=== PATIENT | female | born 1990 | race Caucasian/White ===

== ENCOUNTER 2016-05-01 20:49 | Emergency (ER) | payer OTHER ==
[~2016-05-01] VITALS: Ht 175.2 cm; Wt 68.0 kg
[~2016-05-01 20:49] MED LIST: ALBUTEROL0.09 MG/Ac INH; ANAPROX DS550 MG PO; BACTRIM DS 8001 TA1 PO; BIAXIN500 MG PO; CIPRO500 MG PO; DIFLUCAN150 MG PO; FLEXERIL5 MG PO; KEFLEX500 MG PO; MEDROL DOSEPAK4 MG PO; MOTRIN800 MG PO; NAPROSYN500 MG PO; NKHM; OMNICEF300 MG PO; PREDNICOT20 MG PO; PROVENTIL0.09 MG/AC IH; ROBAXIN750 MG PO; ULTRAM50 MG PO; VIBRAMYCIN100 MG PO; VIVITROL380 MG IM; ZYRTEC10 MG PO
[2016-05-01 21:52] LABS: BILIRUBIN NEGATIVE (NEGATIVE); BLOOD NEGATIVE (NEGATIVE); CLARITY SL CLOUDY (CLEAR); COLOR YELLOW (YELLOW); GLUCOSE NEGATIVE (NEGATIVE); KETONE NEGATIVE (NEGATIVE); LEUKO ESTERASE NEGATIVE (NEGATIVE); NITRITE NEGATIVE (NEGATIVE); PROTEIN NEGATIVE (NEGATIVE); UROBILINOGEN 0.2 E.U./dl (0.2-1.0)
[2016-05-01 21:58] LABS: BACTERIA 1+; RBC 0-2 rbc/hpf (0-2); URINE REFLEX COMMENT NO (NO); WBC 0-2 wbc/hpf (0-5)
[2016-05-01 22:05] LABS: URINE AMPHETAMINES < 1000 (1000ng/ml); URINE BARBITURATES < 200 (200ng/ml)
[2016-05-01 22:09] LABS: URINE COCAINE > 300 (300ng/ml)
[2016-05-01 22:16] LABS: BUN 15 mg/dl (7-24); CARBON DIOXIDE 26 mmol/L (21-32); CHLORIDE 106 mmol/L (98-107); EST GLOM FILT AFRICAN AMERICAN > 60 ml/min; GLUCOSE 94 mg/dL (65-99); POTASSIUM 4.9 mmol/L (3.5-5.1); SODIUM 140 mmol/L (136-145)
== END 2016-05-02 01:18 | disposition home or self-care (01) ==
LOC: ED 20:49
PROVIDERS: Emergency Medicine
DX: T40.1X1A Poisoning by heroin, accidental (unintentional), initial encounter (principal); F17.200 Nicotine dependence, unspecified, uncomplicated; F41.9 Anxiety disorder, unspecified; Y92.9 Unspecified place or not applicable

== ENCOUNTER 2016-08-27 12:18 | Emergency (ER) | payer OTHER ==
[~2016-08-27] VITALS: Ht 172.7 cm; Wt 63.5 kg
[2016-08-27 13:09] LABS: BASO % 0.3 % (0.0-1.0); EOS # 0.3 10*3/uL (0.0-0.4); EOS % 2.2 % (1.0-4.0); HEMATOCRIT 42.7 % (37.0-47.0); HEMOGLOBIN 14.1 g/dl (12.0-16.0); LYMPH # 2.5 10*3/uL (1.3-4.4); LYMPH % 22.3 % (27.0-41.0); MEAN CELL VOLUME 90.7 fl (81.0-99.0); MEAN CORPUSCULAR HGB 29.9 pg (27.0-31.0); MEAN PLATELET VOLUME 10.2 fl (9.6-12.3); MONO # 0.9 10*3/uL (0.1-1.0); MONO % 7.6 % (3.0-9.0); NEUT # 7.6 10*3/uL (2.3-7.9); NEUT % 67.2 % (47.0-73.0); PLATELET COUNT AUTOMATED 202 10*3/uL (130-400); RED BLOOD COUNT 4.71 10*6/uL (4.10-5.10); RED CELL DISTRI WIDTH 13.4 % (0-14.5); WHITE BLOOD COUNT 11.4 10*3/uL (4.8-10.8)
[2016-08-27 13:24] LABS: ALBUMIN 3.4 gm/dl (3.1-4.5); ALKALINE PHOSPHATASE 112 U/L (45-117); BILIRUBIN, TOTAL 0.3 mg/dl (0.2-1.0); BUN 6 mg/dl (7-24); CARBON DIOXIDE 27 mmol/L (21-32); CHLORIDE 104 mmol/L (98-107); EST GLOM FILT AFRICAN AMERICAN > 60 ml/min; GLUCOSE 148 mg/dL (65-99); POTASSIUM 3.8 mmol/L (3.5-5.1); SGOT/AST 43 IU/L (3-35); SGPT/ALT 82 U/L (12-78); SODIUM 142 mmol/L (136-145); TOTAL PROTEIN 7.8 gm/dL (6.4-8.2)
[2016-08-27] MEDS ORDERED: BACTRIM DS 8001 TA1 PO (15:08)
[2016-08-27] MEDS ORDERED: CEPHALEXIN500 M1 PO (15:08)
[2016-08-27] MEDS ORDERED: Motrin,Rufen800 MG PO (15:08)
== END 2016-08-27 16:15 | disposition home or self-care (01) ==
LOC: ED 12:18
PROVIDERS: Physician Assistant
DX: L02.414 Cutaneous abscess of left upper limb (principal); L02.512 Cutaneous abscess of left hand; F19.90 Other psychoactive substance use, unspecified, uncomplicated; F17.200 Nicotine dependence, unspecified, uncomplicated

== ENCOUNTER 2018-02-14 16:02 | Emergency (ER) | payer OTHER ==
[~2018-02-14] VITALS: Ht 175.2 cm; Wt 77.1 kg
[~2018-02-14 16:02] MED LIST changes: +CEPHALEXIN500 M1 PO; +Motrin,Rufen800 MG PO
[2018-02-14 17:59] LABS: ALBUMIN 3.5 gm/dl (3.1-4.5); ALKALINE PHOSPHATASE 86 U/L (45-117); BUN 8 mg/dl (7-24); CHLORIDE 108 mmol/L (98-107); CREATININE 0.74 mg/dL (0.55-1.02); POTASSIUM 3.5 mmol/L (3.5-5.1); SGOT/AST 16 IU/L (3-35); SGPT/ALT 27 U/L (12-78); SODIUM 139 mmol/L (136-145); TOTAL PROTEIN 7.8 gm/dL (6.4-8.2)
[2018-02-14 18:17] LABS: BASO # 0.1 10*3/uL (0.0-0.1); BASO % 0.3 % (0.0-1.0); EOS # 0.3 10*3/uL (0.0-0.4); EOS % 1.6 % (1.0-4.0); HEMATOCRIT 40.4 % (37.0-47.0); HEMOGLOBIN 13.5 g/dl (12.0-16.0); LYMPH # 3.2 10*3/uL (1.3-4.4); LYMPH % 19.5 % (27.0-41.0); MEAN CELL VOLUME 87.6 fl (81.0-99.0); MEAN CORPUSCULAR HGB 29.3 pg (27.0-31.0); MEAN CORPUSCULAR HGB CONC 33.4 g/dl (33.0-37.0); MONO # 1.3 10*3/uL (0.1-1.0); MONO % 7.6 % (3.0-9.0); NEUT # 11.6 10*3/uL (2.3-7.9); NEUT % 70.6 % (47.0-73.0); PLATELET COUNT AUTOMATED 244 10*3/uL (130-400); RED BLOOD COUNT 4.61 10*6/uL (4.10-5.10); RED CELL DISTRI WIDTH 12.9 % (0-14.5); WHITE BLOOD COUNT 16.4 10*3/uL (4.8-10.8)
[2018-02-14] MEDS ORDERED: CEPHALEXIN500 M1 PO (20:36)
[2018-02-14] MEDS ORDERED: SEPTDS PO (20:36)
== END 2018-02-14 20:39 | disposition left against medical advice (07) ==
LOC: ED 16:02
PROVIDERS: Physician Assistant
DX: L02.414 Cutaneous abscess of left upper limb (principal); L02.413 Cutaneous abscess of right upper limb; L98.498 Non-pressure chronic ulcer of skin of other sites with other specified severity; Z79.2 Long term (current) use of antibiotics; Z79.899 Other long term (current) drug therapy

== ENCOUNTER 2019-01-01 15:10 | Emergency (ER) | payer SELFPAY ==
[~2019-01-01] VITALS: Ht 175.2 cm; Wt 77.1 kg
--- NOTE | ~2019-01-01 | EKG ---
[place], [place] ELECTROCARDIOGRAM REPORT NAME: DAREN SINGH UNIT #: [id number] ROOM: DOCTOR: EPIPHANY DRAFT REPORT BIRTHDATE: [birth year] [facility] Test Date: 2019-01-01 Test Time: 16:26:36 Pat Name: DAREN SINGH Department: ER Room: 8 Gender: F [employer] Supervisor: BYRON : 1990 Requested By: YESENIA RAMOS PA-C Order Number: [id number] Reading MD: Aurora Estrada Measurements Intervals [place] Rate: 105 P: 65 ME: 127 QRS: 68 QRSD: 71 T: 49 QT: 314 QTc: 416 Interpretive Statements Sinus tachycardia Baseline wander in lead(s) V1 Electronically Signed On 01-02-2019 11:19:34 PST by Aurora Estrada CM:EKGRPT:ELECTROCARDIOGRAM REPORT [id number] YESENIA RAMOS PA-C EPIPHANY DRAFT REPORT YESENIA RAMOS PA-C
[~2019-01-01 15:10] MED LIST changes: +SEPTDS PO
[2019-01-01 16:32] LABS: BASO % 0.2 % (0.0-1.0); EOS % 0.2 % (1.0-4.0); HEMATOCRIT 38.2 % (37.0-47.0); HEMOGLOBIN 12.7 g/dl (12.0-16.0); LYMPH # 0.6 10*3/uL (1.3-4.4); LYMPH % 7.3 % (27.0-41.0); MEAN CELL VOLUME 91.8 fl (81.0-99.0); MEAN CORPUSCULAR HGB 30.5 pg (27.0-31.0); MEAN CORPUSCULAR HGB CONC 33.2 g/dl (33.0-37.0); MEAN PLATELET VOLUME 10.2 fl (9.6-12.3); MONO # 0.6 10*3/uL (0.1-1.0); MONO % 6.7 % (3.0-9.0); NEUT # 7.1 10*3/uL (2.3-7.9); NEUT % 85.2 % (47.0-73.0); PLATELET COUNT AUTOMATED 116 10*3/uL (130-400); RED BLOOD COUNT 4.16 10*6/uL (4.10-5.10); RED CELL DISTRI WIDTH 12.5 % (0-14.5); WHITE BLOOD COUNT 8.3 10*3/uL (4.8-10.8)
[2019-01-01 16:57] LABS: ALBUMIN 3.2 gm/dl (3.1-4.5); ALKALINE PHOSPHATASE 94 U/L (45-117); BUN 9 mg/dl (7-24); CHLORIDE 104 mmol/L (98-107); CREATININE 0.68 mg/dL (0.55-1.02); LIPASE 48 U/L (73-393); SGOT/AST 38 IU/L (3-35); SGPT/ALT 46 U/L (12-78); SODIUM 133 mmol/L (136-145); TOTAL PROTEIN 7.4 gm/dL (6.4-8.2)
[2019-01-01 16:59] LABS: ACETAMINOPHEN (TYLENOL) < 5.0 ug/ml (10-30); ACT PARTIAL THROMBO TIME 31.4 SECONDS (20.0-32.1); BETA-HCG, QUANT < 1.0 mIU/mL (1-3); ETHYL ALCOHOL < 3.0 mg/dl (<3); TROPONIN I < 0.015 ng/ml (<0.045)
[2019-01-01] MEDS ORDERED: SEPTDS PO (17:49)
[2019-01-01] MEDS ORDERED: CEFADROXIL500 M1 PO (17:49)
[2019-01-01 17:51] LABS: BILIRUBIN NEGATIVE (NEGATIVE); BLOOD TRACE-LYSED (NEGATIVE); CLARITY CLEAR (CLEAR); COLOR YELLOW (YELLOW); GLUCOSE NEGATIVE (NEGATIVE); KETONE NEGATIVE (NEGATIVE); LEUKO ESTERASE TRACE (NEGATIVE); NITRITE NEGATIVE (NEGATIVE); PH 6.5 (5.0-9.0); SPECIFIC GRAVITY <= 1.005 (1.005-1.030); UROBILINOGEN 0.2 E.U./dl (0.2-1.0)
[2019-01-01 17:56] LABS: URINE AMPHETAMINES > 1000 (1000ng/ml); URINE BARBITURATES < 200 (200ng/ml); URINE BENZODIAZEPINES < 200 (200ng/ml); URINE CANNABINOIDS (THC) < 50 (50ng/ml); URINE COCAINE > 300 (300ng/ml); URINE METHADONE < 300 (300ng/ml); URINE OPIATES < 300 (300ng/ml)
[2019-01-01 18:01] LABS: URINE PHENCYCLIDINE < 25 (25ng/ml)
[2019-01-01 18:13] LABS: EPITHELIAL CELLS TNTC
[2019-01-01 18:14] LABS: BACTERIA 2+; RBC 0-2 rbc/hpf (0-2); WBC 0-2 wbc/hpf (0-5)
[2019-01-04 21:09] LABS: GONOCOCCUS BY NAA Negative (Negative)
== END 2019-01-01 17:56 | disposition left against medical advice (07) ==
LOC: ED 15:10
PROVIDERS: Physician Assistant
DX: L02.415 Cutaneous abscess of right lower limb (principal); R07.9 Chest pain, unspecified; R11.2 Nausea with vomiting, unspecified; R79.1 Abnormal coagulation profile; N89.8 Other specified noninflammatory disorders of vagina; F11.90 Opioid use, unspecified, uncomplicated; Z79.2 Long term (current) use of antibiotics; Z79.899 Other long term (current) drug therapy; Z86.14 Personal history of Methicillin resistant Staphylococcus aureus infection

== ENCOUNTER 2019-01-08 11:05 | Emergency (ER) | payer SELFPAY ==
[~2019-01-08] VITALS: Ht 175.2 cm; Wt 77.1 kg
--- NOTE | ~2019-01-08 | EKG ---
[place], [place] ELECTROCARDIOGRAM REPORT NAME: DAREN SINGH UNIT #: [id number] ROOM: DOCTOR: EPIPHANY DRAFT REPORT BIRTHDATE: [birth year] [facility] Test Date: 2019-01-08 Test Time: 11:50:08 Pat Name: DAREN SINGH Department: Room: Gender: F [employer] Specialist: : 1990 Requested By: DAVID TEJADA Order Number: [id number] Reading MD: Bart Dasilva MD Measurements Intervals [place] Rate: 92 P: 85 NM: 129 QRS: 65 QRSD: 70 T: 56 QT: 339 QTc: 420 Interpretive Statements Sinus rhythm Borderline T wave abnormalities Compared to ECG 01/01/2019 16:26:36 T-wave abnormality now present Sinus tachycardia no longer present Electronically Signed On 01-09-2019 12:25:03 PST by Bart Dasilva MD CM:EKGRPT:ELECTROCARDIOGRAM REPORT [id number] DAVID FRASER DRAFT REPORT DAVID TEJADA M.D.
[~2019-01-08 11:05] MED LIST changes: +CEFADROXIL500 M1 PO
[2019-01-08 11:50] LABS: HEMATOCRIT 41.2 % (37.0-47.0); HEMOGLOBIN 13.3 g/dl (12.0-16.0); MEAN CELL VOLUME 92.6 fl (81.0-99.0); MEAN CORPUSCULAR HGB 29.9 pg (27.0-31.0); MEAN CORPUSCULAR HGB CONC 32.3 g/dl (33.0-37.0); MEAN PLATELET VOLUME 9.5 fl (9.6-12.3); PLATELET COUNT AUTOMATED 253 10*3/uL (130-400); RED BLOOD COUNT 4.45 10*6/uL (4.10-5.10); RED CELL DISTRI WIDTH 12.9 % (0-14.5); WHITE BLOOD COUNT 9.6 10*3/uL (4.8-10.8)
[2019-01-08 12:03] LABS: URINE AMPHETAMINES < 1000 (1000ng/ml); URINE BARBITURATES < 200 (200ng/ml); URINE BENZODIAZEPINES < 200 (200ng/ml); URINE CANNABINOIDS (THC) < 50 (50ng/ml); URINE COCAINE > 300 (300ng/ml); URINE METHADONE < 300 (300ng/ml); URINE OPIATES > 300 (300ng/ml); URINE PHENCYCLIDINE < 25 (25ng/ml)
[2019-01-08 12:04] LABS: ALBUMIN 3.2 gm/dl (3.1-4.5); ALKALINE PHOSPHATASE 98 U/L (45-117); BUN 11 mg/dl (7-24); CHLORIDE 108 mmol/L (98-107); CREATININE 0.87 mg/dL (0.55-1.02); POTASSIUM 3.8 mmol/L (3.5-5.1); SGOT/AST 22 IU/L (3-35); SGPT/ALT 24 U/L (12-78); SODIUM 140 mmol/L (136-145); TOTAL PROTEIN 8.2 gm/dL (6.4-8.2)
[2019-01-08 12:06] LABS: BILIRUBIN NEGATIVE (NEGATIVE); BLOOD NEGATIVE (NEGATIVE); CLARITY CLOUDY (CLEAR); COLOR YELLOW (YELLOW); GLUCOSE NEGATIVE (NEGATIVE); KETONE NEGATIVE (NEGATIVE); LEUKO ESTERASE 1+ (NEGATIVE); NITRITE NEGATIVE (NEGATIVE); UROBILINOGEN 0.2 E.U./dl (0.2-1.0)
[2019-01-08 12:16] LABS: ACT PARTIAL THROMBO TIME 26.6 SECONDS (20.0-32.1); INTERNATIONAL NORM RATIO 0.9 (2.0-3.5)
[2019-01-08 12:31] LABS: ATYPICAL LYMPHS 1 % (0-0); PLATELET SUFFICIENCY NORMAL (NORMAL); TOTAL CELLS COUNTED 100 #CELLS
[2019-01-08 12:36] LABS: BACTERIA 3+; EPITHELIAL CELLS 45-50; WBC 21-30 wbc/hpf (0-5)
== END 2019-01-08 13:10 | disposition left against medical advice (07) ==
LOC: ED 11:05
PROVIDERS: Emergency Medicine
DX: A41.9 Sepsis, unspecified organism (principal); M54.5 Low back pain; R05 Cough; R06.02 Shortness of breath; J45.909 Unspecified asthma, uncomplicated; F11.10 Opioid abuse, uncomplicated; F14.10 Cocaine abuse, uncomplicated; F17.200 Nicotine dependence, unspecified, uncomplicated; Z79.2 Long term (current) use of antibiotics; Z79.899 Other long term (current) drug therapy

== ENCOUNTER 2019-12-02 22:41 | Emergency (ER) | payer OTHER ==
[~2019-12-02] VITALS: Ht 175.2 cm; Wt 77.1 kg
[2019-12-03 00:19] LABS: BILIRUBIN Negative (Negative); BLOOD Trace-Lysed (Negative); COLOR Yellow (Yellow); GLUCOSE Negative (Negative); KETONE Negative (Negative); LEUKO ESTERASE Trace (Negative); NITRITE Negative (Negative); PH 6.5 (4.5-8.0); SPECIFIC GRAVITY <= 1.005 (1.001-1.030)
[2019-12-03 00:20] LABS: CLARITY Clear (Clear)
[2019-12-03 00:32] LABS: BACTERIA 1+
[2019-12-03] MEDS ORDERED: CYCLOBENZAPRINE5 M3 PO (01:01)
[2019-12-03] MEDS ORDERED: Motrin,Rufen800 MG PO (01:01)
== END 2019-12-03 01:11 | disposition home or self-care (01) ==
LOC: ED 22:41
PROVIDERS: Emergency Medicine Emergency Medical Services
DX: M54.40 Lumbago with sciatica, unspecified side (principal); Z79.899 Other long term (current) drug therapy

== ENCOUNTER 2019-12-05 11:12 | Emergency (ER) | payer OTHER ==
[~2019-12-05] VITALS: Ht 175.2 cm; Wt 59.0 kg
[~2019-12-05 11:12] MED LIST changes: +CYCLOBENZAPRINE5 M3 PO
== END 2019-12-05 13:41 | disposition left against medical advice (07) ==
LOC: ED 11:12
DX: R51.9 Headache, unspecified (principal); M54.5 Low back pain; F17.210 Nicotine dependence, cigarettes, uncomplicated